=== PATIENT | female | born 1955 | race Caucasian/White ===

== ENCOUNTER → 2020-03-16 | Outpatient (CLI) | payer OTHER, MEDICAID ==
[~2020-03-16] MED LIST: ALPRAZOLAM; AMBIEN 10 MG TA10 MG; BELLADONNA ALK/1 TA1; BONIVA150 MG PO; CARISOPRODOL 3350 MG PO; CREON DR 12,001 EACH PO; CYMBALTA60 MG; DONNATAL EXTEN1 EACH PO; GLYCOLAX POWDER17 G1 PO; HYDROCODON-ACE1 EA10; HYDROXYZINE HCL50 MG PO; HYDROXYZINE PAM50 MG; LEVSIN PO; MIRAPEX0.125 MG PO; NEURONTIN 300300 M1; NEXIUM40 MG PO; NORCO 5-325 TA1 EACH PO; PANCREASE; PERCOCET 5-3251 EACH PO; PLAVIX 75 MG TA75 MG; POTASSIUM CHLO10 ME1 PO; PRENATAL PLUS1 EAC4 PO; PROMETHAZINE HC25 M1 PO; SYNTHROID; TOPAMAX50 MG PO; TOVIAZ8 MG PO; ULTRAM 50MG TAB50 MG PO; XANAX PO; ZPAK PO
== END ==
LOC: M.RAD 13:30
PROVIDERS: ATTEND Family Medicine
DX: M51.35 Other intervertebral disc degeneration, thoracolumbar region (principal); M43.8X4 Other specified deforming dorsopathies, thoracic region; M85.88 Other specified disorders of bone density and structure, other site; M41.86 Other forms of scoliosis, lumbar region; I25.10 Atherosclerotic heart disease of native coronary artery without angina pectoris

== ENCOUNTER → 2020-05-15 | Outpatient (CLI) | payer OTHER | LOC: M.MRI 13:41 | DX: M50.21 Other cervical disc displacement, high cervical region (principal); M50.30 Other cervical disc degeneration, unspecified cervical region; S32.009A Unspecified fracture of unspecified lumbar vertebra, initial encounter for closed fracture; S22.009A Unspecified fracture of unspecified thoracic vertebra, initial encounter for closed fracture; G89.29 Other chronic pain; G95.9 Disease of spinal cord, unspecified; R29.6 Repeated falls; F17.200 Nicotine dependence, unspecified, uncomplicated; X58.XXXA Exposure to other specified factors, initial encounter; Y93.89 Activity, other specified; Y92.89 Other specified places as the place of occurrence of the external cause; Y99.8 Other external cause status ==

== ENCOUNTER → 2020-06-12 | Outpatient (CLI) | payer OTHER | LOC: M.MRI 05-08 14:29 | DX: S32.019A Unspecified fracture of first lumbar vertebra, initial encounter for closed fracture (principal); S22.089A Unspecified fracture of T11-T12 vertebra, initial encounter for closed fracture; M48.061 Spinal stenosis, lumbar region without neurogenic claudication; M51.26 Other intervertebral disc displacement, lumbar region; M89.38 Hypertrophy of bone, other site; X58.XXXA Exposure to other specified factors, initial encounter; Y93.89 Activity, other specified; Y92.89 Other specified places as the place of occurrence of the external cause; Y99.8 Other external cause status ==

== ENCOUNTER → 2021-01-21 | Outpatient (CLI) | payer OTHER ==
[~2021-01-21] MED LIST changes: +BACLOFEN 10MG T10 MG PO; +BELSOMRA10 MG PO; +HYDROCODON-ACE1 EAC5 PO; +SYNTHROID25 MC1 PO
== END ==
LOC: M.PC 01-12 11:10
PROVIDERS: ATTEND Anesthesiology Pain Medicine
DX: M54.5 Low back pain (principal); M81.0 Age-related osteoporosis without current pathological fracture; K85.90 Acute pancreatitis without necrosis or infection, unspecified; D68.62 Lupus anticoagulant syndrome; M79.7 Fibromyalgia; M19.91 Primary osteoarthritis, unspecified site; D58.9 Hereditary hemolytic anemia, unspecified; D51.0 Vitamin B12 deficiency anemia due to intrinsic factor deficiency; Z90.49 Acquired absence of other specified parts of digestive tract; Z88.1 Allergy status to other antibiotic agents; Z88.8 Allergy status to other drugs, medicaments and biological substances; Z79.899 Other long term (current) drug therapy

== ENCOUNTER → 2021-02-18 | Outpatient (CLI) | payer OTHER | LOC: M.PC 12:24 | PROVIDERS: ATTEND Anesthesiology Pain Medicine | DX: M81.0 Age-related osteoporosis without current pathological fracture (principal); K85.90 Acute pancreatitis without necrosis or infection, unspecified; M32.9 Systemic lupus erythematosus, unspecified; M79.7 Fibromyalgia; M19.90 Unspecified osteoarthritis, unspecified site; D58.9 Hereditary hemolytic anemia, unspecified; D51.0 Vitamin B12 deficiency anemia due to intrinsic factor deficiency ==

== ENCOUNTER → 2021-03-18 | Outpatient (CLI) | payer OTHER ==
[~2021-03-18] MED LIST changes: +ADVAIR 250-501 EACH INH; +ADVIL200 M1 PO; +ASPIRIN325 PO; +B-12 INJECTION SUBQ; +COMBIVENT RESPIM4 GM INH; +KLOR-CON 10 ER10 MEQ PO; +LASIX 40 MG TAB40 MG PO; -NEURONTIN 300300 M1; +NEURONTIN 300M300 M2 PO; +NITROSTAT0.4 M1 SUBLING; +PHENERGAN 25 MG25 M1 PO; +PRILOSEC OTC20 MG PO; +PROAIR HFA8.5 GM INH; +VISTARIL 25 MG25 M1 PO
== END ==
LOC: M.PC 12:16
PROVIDERS: ATTEND Anesthesiology Pain Medicine
DX: M54.9 Dorsalgia, unspecified (principal); M81.0 Age-related osteoporosis without current pathological fracture; M19.90 Unspecified osteoarthritis, unspecified site; M79.7 Fibromyalgia; K85.90 Acute pancreatitis without necrosis or infection, unspecified; F17.200 Nicotine dependence, unspecified, uncomplicated

== ENCOUNTER → 2021-04-15 | Outpatient (CLI) | payer OTHER ==
[~2021-04-15] MED LIST changes: +HYSINGLA ER20 MG PO
== END ==
LOC: M.PC 12:21
PROVIDERS: ATTEND Anesthesiology Pain Medicine
DX: M54.59 Other low back pain (principal); M81.0 Age-related osteoporosis without current pathological fracture; K85.90 Acute pancreatitis without necrosis or infection, unspecified; M79.7 Fibromyalgia; M19.90 Unspecified osteoarthritis, unspecified site; D58.9 Hereditary hemolytic anemia, unspecified; D51.0 Vitamin B12 deficiency anemia due to intrinsic factor deficiency; Z90.49 Acquired absence of other specified parts of digestive tract; Z88.8 Allergy status to other drugs, medicaments and biological substances; Z79.82 Long term (current) use of aspirin; Z79.899 Other long term (current) drug therapy

== ENCOUNTER → 2021-05-13 | Outpatient (CLI) | payer OTHER ==
[~2021-05-13] MED LIST changes: +ROXICODONE5 MG PO; +XTAMPZA ER13.5 MG PO
== END ==
LOC: M.PC 12:00
PROVIDERS: ATTEND Anesthesiology Pain Medicine
DX: M81.0 Age-related osteoporosis without current pathological fracture (principal); K85.90 Acute pancreatitis without necrosis or infection, unspecified; M32.10 Systemic lupus erythematosus, organ or system involvement unspecified; M79.7 Fibromyalgia; D58.9 Hereditary hemolytic anemia, unspecified; D51.0 Vitamin B12 deficiency anemia due to intrinsic factor deficiency

== ENCOUNTER → 2021-06-10 | Outpatient (CLI) | payer OTHER ==
[~2021-06-10] MED LIST changes: +XTAMPZA ER18 MG PO
== END ==
LOC: M.PC 11:20
PROVIDERS: ATTEND Anesthesiology Pain Medicine
DX: M54.50 Low back pain, unspecified (principal); M81.0 Age-related osteoporosis without current pathological fracture; K85.90 Acute pancreatitis without necrosis or infection, unspecified; M79.7 Fibromyalgia; M19.91 Primary osteoarthritis, unspecified site; D58.9 Hereditary hemolytic anemia, unspecified; D51.0 Vitamin B12 deficiency anemia due to intrinsic factor deficiency; Z90.49 Acquired absence of other specified parts of digestive tract; Z88.8 Allergy status to other drugs, medicaments and biological substances; Z79.899 Other long term (current) drug therapy

== ENCOUNTER → 2021-07-08 | Outpatient (CLI) | payer OTHER | LOC: M.PC 08:44 | PROVIDERS: ATTEND Anesthesiology Pain Medicine | DX: M54.50 Low back pain, unspecified (principal); M85.80 Other specified disorders of bone density and structure, unspecified site; K85.90 Acute pancreatitis without necrosis or infection, unspecified; M79.7 Fibromyalgia; D58.9 Hereditary hemolytic anemia, unspecified; D51.0 Vitamin B12 deficiency anemia due to intrinsic factor deficiency; Z90.49 Acquired absence of other specified parts of digestive tract; Z88.8 Allergy status to other drugs, medicaments and biological substances; Z79.899 Other long term (current) drug therapy ==

== ENCOUNTER 2021-07-27 00:47 | Inpatient (IN) | payer OTHER ==
[2021-07-27] VITALS (11 sets, daily range): BP systolic 87–108; BP diastolic 48–66
[~2021-07-27] VITALS: Ht 157.5 cm; Wt 51.3 kg
--- NOTE | ~2021-07-27 | PROC ---
[facility] [address] [place] [address] PROCEDURE REPORT Name: DIMITRI WADE Room: [address] IN M.R.#: [id number] Admission: 07/27/21 Attend Phys: Lynnette Pineda Discharge: 08/03/21 Date of : 53 Report #: [id number] THIS REPORT FOR: cc: Denys Knight Russell J. DO [facility],Medical Records Staff ~ For Gi report, please see the Provation report in Perceptive 7 content. By: 0839Medical Records Staff TERESA /ERIN
--- NOTE | ~2021-07-27 | EMS ---
[address] [address] EMS Patient Care Report Name: DIMITRI WADE Room: [place] [address] ADM IN [facility]#: [id number] Admission: 07/27/21 Attend Phys: Lynnette Pineda Discharge: Date of : 53 Report #: [id number] THIS REPORT FOR: //name// Report Transmitted: 07/27/2021 06:56 EMS Care Summary [facility] Incident [id number] @ 07/27/2021 00:04 Incident Location [address] [place] [address] Patient DIMITRI WADE Female, 65 Years 1955 Patient Address [address] [place] [address] Patient History Lupus,Pancreatitis, Patient Allergies No known allergies, Chief Complaint altered mental status Disposition Transported No Lights/[place] Reason Unconscious/Fainting Transported To [facility] Narrative Upon arrival at scene, pt presented as a 65 y/o woman unconscious and breathing sitting on a bedside commode in a bedroom of a private residence with a chief complaint of altered mental status. A man on scene who identified himself as the pt's stated that pt "has been sick for a few days" and became unconscious while sitting on the bedside commod Pt's reported that pt had no complaints prior to her syncopal episode but reported that pt [address] [place] [address] EMS Patient Care Report Name: DIMITRI WADE Room: [place] [address] ADM IN ..#: [id number] Admission: 07/27/21 Attend Phys: Lynnette Pineda Discharge: Date of : 53 Report #: [id number] experienced a decreased appetite for approximately 96 hrs prior to EMS arrival, stating "she only ate half a quarter-pounder yesterday." Pt was responsive only to painful stimuli with a GCS of 9 upon EMS arrival and exhibited bilateral contusions to upper extremities. Serial 12-lead ECGs exhibited no ST elevation and no opioid/anticoagulant medications were observed on scene. Pt exhibited no other obvious signs of trauma or deformity upon examination and pt remained non-verbal, responsive to verbal/painful stimuli, GCS 9-10, and a seemingly unreliable historian to recent events and personal medical history throughout EMS care. Pt was treated per protocol and transfer of patient care was completed upon arrival at destination medical facility. Initial Vitals @00:21 @00:25R: 16,EtCO2: 22, @00:19P: 82,R: 16,EtCO2: 19,SpO2: 100, @00:20P: 76,R: 15,EtCO2: 23,SpO2: 96, @00:31R: 17,EtCO2: 21, @00:44R: 19,EtCO2: 19, @00:41P: 155,R: 18,EtCO2: 21, @00:41P: 159,R: 18,BP: 99/74,Pain: 0/10,GCS: 9,EtCO2: 21,SpO2: 100,Revised Trauma: 11,WI Suspected: false @00:28GCS: 9, @00:17P: 130,R: 16,BP: 76/52,Pain: 0/10,GCS: 9,Glucose: 96,EtCO2: 21,SpO2: 97,Revised Trauma: 10,WI Suspected: false @00:26R: 16,BP: 96/75,GCS: 9,EtCO2: 22,Revised Trauma: 11, @00:37P: 160,R: 17,BP: 164/141,Pain: 0/10,GCS: 10,EtCO2: 21,Revised Trauma: 11,WI Suspected: false Impression Altered Mental Status Procedures @00:20 IV Therapy - 0cc (20 ga) Site: Forearm-Left Response: UnchangedFailed @00:25 IV Therapy - 0cc (20 ga) Site: Antecubital-Right Response: UnchangedFailed @00:09 ALS Assessment Response: UnchangedSucceeded @00:21 12-Lead ECG @00:20 Oxygen FlowRate: 2 Device: Nasal Cannula (NC) Response: UnchangedSucceeded @00:30 Sepsis Notification Response: Unchanged Timeline 00:03,Call Received 00:04,[place] [address] EMS Patient Care Report Name: DIMITRI WADE Room: [place] [address] ADM IN [facility]#: [id number] Admission: 07/27/21 Attend Phys: Lynnette Pineda Discharge: Date of : 53 Report #: [id number] 00:06,En Route 00:09,On Scene 00:09,At Patient 00:09,ALS Assessment,Response: UnchangedSucceeded, 00:17,BP: 76/52 M,PULSE: 130,RR: 16 R,SPO2: 97 Ox,ETCO2: 21 ,B,PAIN: 0,GCS: 9, 00:19,BP: / M,PULSE: 82,RR: 16 R,SPO2: 100 Ox,ETCO2: 19 ,BG: ,PAIN: ,GCS: , 00:20,IV Therapy - 0cc 20 ga Site: Forearm-Left,Response: UnchangedFailed, 00:20,Oxygen FlowRate: 2 Device: Nasal Cannula (NC) Response: UnchangedSucceeded, 00:20,BP: / M,PULSE: 76,RR: 15 R,SPO2: 96 Ox,ETCO2: 23 ,BG: ,PAIN: ,GCS: , 00:21,12-Lead ECG, 00:21,BP: / M,PULSE: ,RR: R,SPO2: Ox,ETCO2: ,BG: ,PAIN: ,GCS: , 00:24,Depart Scene 00:25,IV Therapy - 0cc 20 ga Site: Antecubital-Right,Response: UnchangedFailed, 00:25,BP: / M,PULSE: ,RR: 16 R,SPO2: Ox,ETCO2: 22 ,BG: ,PAIN: ,GCS: , 00:26,BP: 96/75 M,PULSE: ,RR: 16 R,SPO2: Ox,ETCO2: 22 ,BG: ,PAIN: ,GCS: 9, 00:28,BP: / M,PULSE: ,RR: R,SPO2: Ox,ETCO2: ,BG: ,PAIN: ,GCS: 9, 00:30,Sepsis Notification,Response: Unchanged 00:31,BP: / M,PULSE: ,RR: 17 R,SPO2: Ox,ETCO2: 21 ,BG: ,PAIN: ,GCS: , 00:37,BP: 164/141 M,PULSE: 160,RR: 17 R,SPO2: Ox,ETCO2: 21 ,BG: ,PAIN: 0,GCS: 10, 00:41,BP: / M,PULSE: 155,RR: 18 R,SPO2: Ox,ETCO2: 21 ,BG: ,PAIN: ,GCS: , 00:41,BP: 99/74 M,PULSE: 159,RR: 18 R,SPO2: 100 Ox,ETCO2: 21 ,BG: ,PAIN: 0,GCS: 9, 00:44,At Destination 00:44,BP: / M,PULSE: ,RR: 19 R,SPO2: Ox,ETCO2: 19 ,BG: ,PAIN: ,GCS: , 01:01,Call Closed 01:15,In District Disclaimer v1.1 Copyright 2021 [employer] This EMS Care Summary contains data elements from the applicable legal record (which may be displayed differently). It is designed to provide pertinent information for the following purposes: continuity of care, clinical quality, and state data reporting. The complete legal record is available to ED staff and administrators of the receiving hospital in [employer]'s Patient Tracker. All data is provided "as is."
--- NOTE | ~2021-07-27 | EMS ---
[facility] [address] [place] [address] EMS Patient Care Report Name: DIMITRI WADE Room: [facility]..#: [id number] Admission: Attend Phys: Discharge: Date of : 53 Report #: [id number] THIS REPORT FOR: //name// Report Transmitted: 07/27/2021 01:32 EMS Care Summary [place] [facility] Incident [id number] @ 07/27/2021 00:04 Incident Location [address] [place] [address] Patient DIMITRI WADE Female, 65 Years 1955 Patient Address [address] [place] [address] Patient History Lupus,Pancreatitis, Patient Allergies No known allergies, Chief Complaint altered mental status Disposition Transported No Lights/[place] Reason Unconscious/Fainting Transported To [facility] Narrative Upon arrival at scene, pt presented as a 65 y/o woman unconscious and breathing sitting on a bedside commode in a bedroom of a private residence with a chief complaint of altered mental status. A man on scene who identified himself as the pt's stated that pt "has been sick for a few days" and became unconscious while sitting on the bedside commod Pt's reported that pt had no complaints prior to her syncopal episode but reported that pt [address] [place] [address] EMS Patient Care Report Name: DIMITRI WADE Room: [facility]..#: [id number] Admission: Attend Phys: Discharge: Date of : 53 Report #: [id number] experienced a decreased appetite for approximately 96 hrs prior to EMS arrival, stating "she only ate half a quarter-pounder yesterday." Pt was responsive only to painful stimuli with a GCS of 9 upon EMS arrival and exhibited bilateral contusions to upper extremities. Serial 12-lead ECGs exhibited no ST elevation and no opioid/anticoagulant medications were observed on scene. Pt exhibited no other obvious signs of trauma or deformity upon examination and pt remained non-verbal, responsive to verbal/painful stimuli, GCS 9-10, and a seemingly unreliable historian to recent events and personal medical history throughout EMS care. Pt was treated per protocol and transfer of patient care was completed upon arrival at destination medical facility. Initial Vitals @00:21 @00:25R: 16,EtCO2: 22, @00:19P: 82,R: 16,EtCO2: 19,SpO2: 100, @00:20P: 76,R: 15,EtCO2: 23,SpO2: 96, @00:31R: 17,EtCO2: 21, @00:44R: 19,EtCO2: 19, @00:41P: 155,R: 18,EtCO2: 21, @00:41P: 159,R: 18,BP: 99/74,Pain: 0/10,GCS: 9,EtCO2: 21,SpO2: 100,Revised Trauma: 11,MD Suspected: false @00:28GCS: 9, @00:17P: 130,R: 16,BP: 76/52,Pain: 0/10,GCS: 9,Glucose: 96,EtCO2: 21,SpO2: 97,Revised Trauma: 10,MD Suspected: false @00:26R: 16,BP: 96/75,GCS: 9,EtCO2: 22,Revised Trauma: 11, @00:37P: 160,R: 17,BP: 164/141,Pain: 0/10,GCS: 10,EtCO2: 21,Revised Trauma: 11,MD Suspected: false Impression Altered Mental Status Procedures @00:20 IV Therapy - 0cc (20 ga) Site: Forearm-Left Response: UnchangedFailed @00:25 IV Therapy - 0cc (20 ga) Site: Antecubital-Right Response: UnchangedFailed @00:09 ALS Assessment Response: UnchangedSucceeded @00:21 12-Lead ECG @00:20 Oxygen FlowRate: 2 Device: Nasal Cannula (NC) Response: UnchangedSucceeded @00:30 Sepsis Notification Response: Unchanged Timeline 00:03,Call Received 00:04,[place] [address] EMS Patient Care Report Name: DIMITRI WADE Room: [facility].R.#: [id number] Admission: Attend Phys: Discharge: Date of : 53 Report #: [id number] 00:06,En Route 00:09,On Scene 00:09,At Patient 00:09,ALS Assessment,Response: UnchangedSucceeded, 00:17,BP: 76/52 M,PULSE: 130,RR: 16 R,SPO2: 97 Ox,ETCO2: 21 ,B,PAIN: 0,GCS: 9, 00:19,BP: / M,PULSE: 82,RR: 16 R,SPO2: 100 Ox,ETCO2: 19 ,BG: ,PAIN: ,GCS: , 00:20,IV Therapy - 0cc 20 ga Site: Forearm-Left,Response: UnchangedFailed, 00:20,Oxygen FlowRate: 2 Device: Nasal Cannula (NC) Response: UnchangedSucceeded, 00:20,BP: / M,PULSE: 76,RR: 15 R,SPO2: 96 Ox,ETCO2: 23 ,BG: ,PAIN: ,GCS: , 00:21,12-Lead ECG, 00:21,BP: / M,PULSE: ,RR: R,SPO2: Ox,ETCO2: ,BG: ,PAIN: ,GCS: , 00:24,Depart Scene 00:25,IV Therapy - 0cc 20 ga Site: Antecubital-Right,Response: UnchangedFailed, 00:25,BP: / M,PULSE: ,RR: 16 R,SPO2: Ox,ETCO2: 22 ,BG: ,PAIN: ,GCS: , 00:26,BP: 96/75 M,PULSE: ,RR: 16 R,SPO2: Ox,ETCO2: 22 ,BG: ,PAIN: ,GCS: 9, 00:28,BP: / M,PULSE: ,RR: R,SPO2: Ox,ETCO2: ,BG: ,PAIN: ,GCS: 9, 00:30,Sepsis Notification,Response: Unchanged 00:31,BP: / M,PULSE: ,RR: 17 R,SPO2: Ox,ETCO2: 21 ,BG: ,PAIN: ,GCS: , 00:37,BP: 164/141 M,PULSE: 160,RR: 17 R,SPO2: Ox,ETCO2: 21 ,BG: ,PAIN: 0,GCS: 10, 00:41,BP: / M,PULSE: 155,RR: 18 R,SPO2: Ox,ETCO2: 21 ,BG: ,PAIN: ,GCS: , 00:41,BP: 99/74 M,PULSE: 159,RR: 18 R,SPO2: 100 Ox,ETCO2: 21 ,BG: ,PAIN: 0,GCS: 9, 00:44,At Destination 00:44,BP: / M,PULSE: ,RR: 19 R,SPO2: Ox,ETCO2: 19 ,BG: ,PAIN: ,GCS: , 01:01,Call Closed 01:15,In District Disclaimer v1.1 Copyright 2021 [employer] This EMS Care Summary contains data elements from the applicable legal record (which may be displayed differently). It is designed to provide pertinent information for the following purposes: continuity of care, clinical quality, and state data reporting. The complete legal record is available to ED staff and administrators of the receiving hospital in [employer]'s Patient Tracker. All data is provided "as is."
[2021-07-27 03:05] LABS: ABSOLUTE LYMPHOCYTES 1.4 thou/uL (0.8-5.3); ABSOLUTE MONOCYTES 0.3 thou/uL (0.0-1.2); ABSOLUTE NEUTROPHILS 9.4 thou/uL (1.6-8.1); BASOPHILS 0.4 %; EOSINOPHILS 0.4 %; HEMATOCRIT 34.7 % (37.0-47.0); HEMOGLOBIN 11.7 gm/dL (12.0-15.0); LYMPHOCYTES 12.5 %; MCH 32.2 pg (26.0-34.0); MCHC 33.7 g/dL (28.0-37.0); MCV 95.6 fL (80.0-100.0); MONOCYTES 2.5 %; MPV 9.4 fl. (7.2-11.1); NUCLEATED RBCS 0 /100WBC; PLATELET COUNT* 241 thou/uL (150-400); POLYS 84.2 %; RBC 3.63 mil/uL (4.20-5.00); RDW-CV 14.9 % (10.5-14.5); WBC 11.1 thou/uL (4.0-11.0)
[2021-07-27 03:29] LABS: CALCIUM 6.5 mg/dL (8.5-10.1); CREATININE 0.7 mg/dL (0.6-1.3)
[2021-07-27 03:40] LABS: ALBUMIN 1.7 g/dL (3.4-5.0); TOTAL BILIRUBIN 3.1 mg/dL (<0.1-1.0); TOTAL PROTEIN 4.2 g/dL (6.4-8.2)
[2021-07-27 03:41] LABS: PCO2 32.2 mmHg (35.0-45.0); pH 7.515 (7.340-7.450)
[2021-07-27 03:43] LABS: PO2 433.2 mmHg (75.0-100.0)
[2021-07-27 03:57] LABS: ACETAMINOPHEN 5 ug/mL (10-30); SALICYLATE < 2.8 mg/dL (2.8-20.0)
[2021-07-27 04:02] LABS: AMP/METHAMP Negative (Negative); BARBITURATES POSITIVE (Negative); BENZODIAZEPINES POSITIVE (Negative); COCAINE Negative (Negative); METHADONE Negative (Negative); OPIATES Negative (Negative); PCP Negative (Negative); THC Negative (Negative); URINE BLOOD TRACE (Negative); URINE CLARITY CLEAR; URINE COLOR YELLOW; URINE GLUCOSE-RANDOM TRACE (Negative); URINE KETONES NEGATIVE (Negative); URINE LEUKOCYTES NEGATIVE (Negative); URINE NITRITE NEGATIVE (Negative); URINE PROTEIN TRACE (Negative); URINE UROBILINOGEN >= 8.0 E.U./dl (0.2-1.0)
[2021-07-27 04:08] LABS: URINE BILIRUBIN 2+ (Negative)
[2021-07-27 04:10] LABS: ICTOTEST (BILI CONFIRMATORY) Positive (Negative)
[2021-07-27 11:05] LABS: HEMATOCRIT 37.3 % (37.0-47.0); HEMOGLOBIN 12.6 gm/dL (12.0-15.0); MCH 32.3 pg (26.0-34.0); MCHC 33.7 g/dL (28.0-37.0); MCV 95.9 fL (80.0-100.0); MPV 9.5 fl. (7.2-11.1); NUCLEATED RBCS 0 /100WBC; PLATELET COUNT* 277 thou/uL (150-400); RBC 3.89 mil/uL (4.20-5.00); RDW-CV 14.7 % (10.5-14.5); WBC 18.3 thou/uL (4.0-11.0)
[2021-07-27 12:09] LABS: ABSOLUTE LYMPHOCYTES 1.3 thou/uL (0.8-5.3); ABSOLUTE MONOCYTES 1.1 thou/uL (0.0-1.2); ABSOLUTE NEUTROPHILS 15.9 thou/uL (1.6-8.1); PLATELET ESTIMATE ADEQUATE
[2021-07-27 12:26] LABS: MAGNESIUM 2.7 mg/dL (1.8-2.4)
[2021-07-27 12:28] LABS: POTASSIUM 1.2 mmol/L (3.5-5.1)
[2021-07-27 12:44] LABS: CALCIUM 6.1 mg/dL (8.5-10.1); CREATININE 0.9 mg/dL (0.6-1.3)
[2021-07-27 12:45] LABS: POTASSIUM 1.3 mmol/L (3.5-5.1)
[2021-07-27 12:49] LABS: ALBUMIN 1.6 g/dL (3.4-5.0); TOTAL BILIRUBIN 2.9 mg/dL (<0.1-1.0); TOTAL PROTEIN 4.1 g/dL (6.4-8.2)
--- NOTE | 2021-07-27 13:24 | 2DMMODE ---
[place] [address] 2 D/M-MODE ECHOCARDIOGRAM Name: DIMITRI WADE MANFRED Room: [address] IN [facility]#: [id number] Admission: 07/27/21 Attend Phys: Shan Chacon Discharge: Date of : 53 Date of Service: 07/27/21 1323 Report #: [id number] THIS REPORT FOR: cc: Denys Knight Russell J. DO Biggs, F. Douglas MD [facility] ~ APPROVED REPORT Study performed: 07/27/2021 10:38:26 EXAM: Comprehensive 2D, Doppler, and color-flow Echocardiogram Patient Location: In-Patient Room #: 002 Status: routine BSA: 1.50 HR: 91 bpm BP: 108/64 mmHg Rhythm: NSR Other Information Study Quality: Good Indications Arrhythmia svt 2D Dimensions IVSd: 8.49 (7-11mm) LVOT Diam: 20.11 (18-24mm) LVDd: 34.93 mm PWd: 8.60 (7-11mm) Ascending Ao: 29.19 (22-36mm) LVDs: 21.05 (25-40mm) Aortic Root: 29.35 mm Volumes Left Atrial Volume (Systole) LA ESV Index: 19.80 mL/m2 Aortic Valve AoV Peak Chavo.: 0.99 m/s AO Peak Gr.: 3.92 mmHg LVOT Max P.50 mmHg AO Mean Gr.: 2.19 mmHg LVOT Mean P.68 mmHg LVOT Max V: 0.94 m/s AO V2 VTI: 14.26 cm LVOT Mean V: 0.60 m/s EDITH (VTI): 2.99 cm2 LVOT V1 VTI: 13.43 [place] [address] 2 D/M-MODE ECHOCARDIOGRAM Name: DIMITRI WADE Room: [address] IN ..#: [id number] Admission: 07/27/21 Attend Phys: Shan Chacon Discharge: Date of : 53 Date of Service: 07/27/21 1323 Report #: [id number] Mitral Valve E/A Ratio: 0.79 MV Decel. Time: 302.50 ms MV E Max Chavo.: 0.43 m/s MV PHT: 87.73 ms MVA (PHT): 2.51 cm2 TDI E/Lateral E': 4.30 E/Medial E': 7.17 Medial E' Chavo.: 0.06 m/s Lateral E' Chavo.: 0.10 m/s Pulmonary Valve PV Peak Chavo.: 0.64 m/s PV Peak Gr.: 1.62 mmHg Tricuspid Valve RAP Estimate: 5.00 mmHg TR Peak Gr.: 17.27 mmHg RVSP: 22.00 mmHg PA Pressure: 22.00 mmHg Left Ventricle The left ventricle is normal size. There is normal LV segmental wall motion. There is normal left ventricular wall thickness. Left ventricular systolic function is normal. The left ventricular ejection fraction is within the normal range. LVEF is 50-55%. Grade I - abnormal relaxation pattern. Right Ventricle The right ventricle is normal size. The right ventricular systolic function is normal. Atria The left atrium size is normal. The right atrium size is normal. Aortic Valve The aortic valve is normal in structure. No aortic regurgitation is present. There is no aortic valvular stenosis. Mitral Valve The mitral valve is normal in structure. There is no mitral valve regurgitation noted. No evidence of mitral valve stenosis. Tricuspid Valve The tricuspid valve is normal in [place] [address] 2 D/M-MODE ECHOCARDIOGRAM Name: DIMITRI WADE MANFRED Room: [address]#: [id number] Admission: 07/27/21 Attend Phys: Shan Chacon Discharge: Date of : 53 Date of Service: 07/27/21 1323 Report #: [id number] regurgitation. No pulmonary hypertension. Pulmonic Valve The pulmonary valve is normal in structure. There is no pulmonic valvular regurgitation. Great Vessels The aortic root is normal in size. IVC is normal in size and collapses >50% with inspiration. Pericardium There is no pericardial effusion. <Conclusion> LVEF is 50-55%. Grade I - abnormal relaxation pattern. There is normal left ventricular wall thickness. The left ventricle is normal size. There is normal LV segmental wall motion. The aortic valve is normal in structure. The mitral valve is normal in structure. Mild tricuspid regurgitation. No pulmonary hypertension. IVC is normal in size and collapses >50% with inspiration. <ELECTRONICALLY SIGNED> By: Cecy Hein MD, FACC 07/27/21 132 132 132 Cecy Hein MD, FACC /INF
--- NOTE | 2021-07-27 16:31 | EKG ---
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1955 Requested By: Shanell Christie Order Number: [id number] MD: Niranjan Servin Measurements Intervals [place] Rate: 169 P: 242 CO: 122 QRS: 45 QRSD: 87 T: QT: 270 QTc: 453 Interpretive Statements Sinus tachycardia Low voltage, extremity leads Repolarization abnormality, prob rate related Compared to ECG 12/12/2008 14:58:24 Low QRS voltage now present Sinus rhythm no longer present Electronically Signed On 07-27-2021 16:30:47 PIZZA DRIVER by Niranjan Servin [email or web address] <ELECTRONICALLY SIGNED> By: Niranjan Servin MD, [facility] 07/27/21 1630 0055 0055 Niranjan Servin MD, [facility] /EPI
--- NOTE | 2021-07-27 16:31 | EKG ---
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1955 Requested By: Shanell Christie Order Number: [id number] MD: Niranjan Servin Measurements Intervals [place] Rate: 175 P: 0 RI: QRS: 69 QRSD: 91 T: 259 QT: 300 QTc: 512 Interpretive Statements Supraventricular tachycardia Low voltage, extremity leads Repolarization abnormality, prob rate related Compared to ECG 07/27/2021 00:55:23 No significant changes Electronically Signed On 07-27-2021 16:31:18 STORAGE FACILITY RENTAL CLERK by Niranjan Servin [email or web address] <ELECTRONICALLY SIGNED> By: Niranjan Servin MD, [facility] 07/27/21 1631 0119 0119 Niranjan Servin MD, [facility] /EPI
--- NOTE | 2021-07-27 16:33 | EKG ---
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1955 Requested By: Shanell Christie Order Number: [id number] MD: Nirajnan Servin Measurements Intervals [place] Rate: 179 P: 248 MN: 62 QRS: 59 QRSD: 149 T: 260 QT: 299 QTc: 517 Interpretive Statements supraventricular tachycardia artifact noted Compared to ECG 07/27/2021 01:19:49 no change Electronically Signed On 07-27-2021 16:32:53 PRINT LINE TAILER by Niranjan Servin [email or web address] <ELECTRONICALLY SIGNED> By: Niranjan Servin MD, [facility] 07/27/21 1632 0121 0121 Niranjan Servin MD, [facility] /EPI
[2021-07-27 23:29] LABS: CALCIUM 6.6 mg/dL (8.5-10.1); CREATININE 0.9 mg/dL (0.6-1.3)
[2021-07-27 23:34] LABS: POTASSIUM 1.7 mmol/L (3.5-5.1)
[2021-07-28] VITALS (62 sets, daily range): BP systolic 73–114; BP diastolic 42–89
[2021-07-28 06:39] LABS: HEMATOCRIT 28.3 % (37.0-47.0); MCH 32.7 pg (26.0-34.0); MCHC 33.8 g/dL (28.0-37.0); MCV 96.8 fL (80.0-100.0); MPV 9.3 fl. (7.2-11.1); RBC 2.93 mil/uL (4.20-5.00); RDW-CV 15.4 % (10.5-14.5); WBC 13.7 thou/uL (4.0-11.0)
[2021-07-28 07:02] LABS: HEMOGLOBIN 9.6 gm/dL (12.0-15.0)
[2021-07-28 07:19] LABS: ALBUMIN 3.2 g/dL (3.4-5.0); CALCIUM 6.7 mg/dL (8.5-10.1); MAGNESIUM 4.1 mg/dL (1.8-2.4); TOTAL BILIRUBIN 3.4 mg/dL (<0.1-1.0)
--- NOTE | 2021-07-28 07:46 | CON ---
[address] [address] CONSULTATION Name: DIMITRI WADE Room: [address] ADM IN M.R.#: [id number] Admission: 07/27/21 Attend Phys: Lynnette Pineda Discharge: Date of : 53 Report #: [id number] THIS REPORT FOR: cc: Denys Knight Russell J. DO Biggs, F. Douglas MD [facility] ~ DATE OF CONSULTATION: 07/27/2021 CARDIOLOGY CONSULTATION HISTORY OF PRESENT ILLNESS: Cardiology consultation assessed by Dr. Chacon to see this 65-year-old white female in Cardiology consultation for evaluation and treatment of possible SVT or PSVT. This lady came to the Emergency Room last night with unresponsiveness. She has been unresponsive for at least 3 hours before being brought in. She has been sick since ' with gradual worsening. She was found to be unresponsive to have acute respiratory failure and she was quite tachycardic. Her EKG shows what appears to be a narrow complex tachycardia at a rate of 164. She was given adenosine, which did break her, but it caused bradycardia and some long pauses. She was therefore apparently given according to the ICU nurse atropine in the ER and she became tachycardic again. It is not quite clear whether this is sinus tachycardia or PSVT. This lady does have a history of multiple problems. The history is from the chart as she is intubated and unresponsive. She had multiple metabolic problems in the ER including a potassium of 1. She was hypercalcemic markedly so also as well as hypomagnesemic. She had an elevated lactic acid. She has been having quite a bit of diarrhea. She said to have some sort of chronic colitis. Most of the history is obtained from the chart. PAST MEDICAL AND SURGICAL HISTORY: She does have a past history of osteoporosis, pancreatitis, lupus, CVA x 2, fibromyalgia, lupus, blood clotting disease, arthritis, hemolytic anemia, pernicious anemia and chronic insomnia. She has had an appendectomy, hernia repair, pins in the left leg, cholecystectomy, panniculectomy and pancreas surgery. HOME MEDICATIONS: Include: 1. Cymbalta 60 mg daily. 2. Neurontin 300 mg b.i.d. 3. Synthroid 25 mcg daily. 4. Baclofen 10 mg b.i.d. 4. Vistaril 25 mg at bedtime. 5. Combivent 1 puff q.i.d. 6. Albuterol 2 puffs every 4 hours p.r.n. 7. Advair 1 puff b.i.d. She appears to have COPD. 8. P.r.n. nitroglycerin. 9. Lasix 40 [place] [address] CONSULTATION Name: DIMITRI WADE MANFRED Room: [address] IN [facility]#: [id number] Admission: 07/27/21 Attend Phys: Lynnette Pineda Discharge: Date of : 53 Report #: [id number] 10. Phenergan 12.5 mg b.i.d. 11. Omeprazole 20 mg daily. 12. Potassium 10 mEq daily p.r.n. 13. Lasix. 14. B12 injections. 15. Aspirin 325 mg daily. 16. Ibuprofen t.i.d. ALLERGIES: SHE IS ALLERGIC TO AZITHROMYCIN, CONTRAST DYE, LATEX, POVIDONE IODINE, STADOL, REGLAN AND COMPAZINE. SOCIAL HISTORY: She does not smoke, drink or use illegal drugs according to the chart. REVIEW OF SYSTEMS: Unobtainable. FAMILY HISTORY: Unobtainable. PHYSICAL EXAMINATION: GENERAL: She presents as an elderly, very thin, white female, in no acute distress. She is intubated and unresponsive. VITAL SIGNS: Her pulse was 77 and regular. She appeared to be in normal sinus rhythm on the monitor. Blood pressure was 108/64, on Levophed. She has been tapered off of it; however, an hour blood pressure is running in the 90 systolic. Her O2 sats are 97%, respirations are 20 on the ventilator, temperature is 36.3. HEENT: Head was atraumatic. Eyes are clear. NECK: Supple. There is no jugular venous distention or hepatojugular reflux. Thyroid is not enlarged. There is no adenopathy. SKIN: Warm and dry. Mucous membranes are moist. LUNGS: Clear to auscultation and percussion. HEART: Revealed normal first and second heart sound. There is soft S4. There is no S3. There are no murmurs, rubs, thrills, or heaves. There was no other gallops. PMI is nondisplaced. ABDOMEN: Soft, flat, nontender. No palpable masses, no organomegaly. EXTREMITIES: Revealed no cyanosis, clubbing or edema. NEUROLOGIC: The patient did not mentate normally. She was unresponsive. LABORATORY DATA: EKG is as described above. Chest x-ray was unremarkable. IMPRESSION: 1. Possible supraventricular tachycardia versus sinus tachycardia. I favor sinus tachycardia. 2. Unresponsiveness. [place] [address] [place] [address] CONSULTATION Name: DIMITRI WADE Room: [address]#: [id number] Admission: 07/27/21 Attend Phys: Lynnette Pineda Discharge: Date of : 53 Report #: [id number] 3. Acute respiratory failure. 4. Hypocalcemia. 5. Profound hypokalemia. 6. Hypomagnesemia. 7. Elevated lactate. 8. Diarrhea. RECOMMENDATIONS: I would replace all of her electrolytes and give her fluid. If she has more SVT and it is clear cut SVT, then I would treat it. Unfortunately, at this point given her blood pressure systolic in the 90s, I do not want to give her a beta sheila or calcium channel sheila to prevent SVT and I do want to give her an antiarrhythmic given the electrolyte disturbances. I cannot give her digoxin because of the hypokalemia. We will observe her at this point as she is in sinus rhythm and treat her if she needs it. I think fluid replacement and electrolyte replacement are the cramer at this point. Thank you very much for asking me to see patient. If there are any questions, please feel free to contact me. <ELECTRONICALLY SIGNED> By: Cecy Hein MD, [facility] 07/28/21 0746 1146 1716FJerad Hein MD, FACC /nt
[2021-07-28 08:10] LABS: HEPATITIS B SURFACE AG Negative (Negative)
[2021-07-28 12:12] LABS: BE -5.4 mmol/L (-2 to +3); PCO2 20.6 mmHg (35.0-45.0); PO2 121.8 mmHg (75.0-100.0); pH 7.509 (7.340-7.450)
[2021-07-28 12:20] LABS: HEMOGLOBIN 9.6 gm/dL (12.0-15.0); MCH 32.6 pg (26.0-34.0); MCHC 33.2 g/dL (28.0-37.0); MCV 98.2 fL (80.0-100.0); MPV 9.6 fl. (7.2-11.1); RBC 2.95 mil/uL (4.20-5.00); RDW-CV 16.2 % (10.5-14.5)
[2021-07-28 12:38] LABS: TOTAL BILIRUBIN 3.2 mg/dL (<0.1-1.0); TOTAL PROTEIN 4.8 g/dL (6.4-8.2)
[2021-07-28 12:52] LABS: CALCIUM 6.5 mg/dL (8.5-10.1); CREATININE 1.1 mg/dL (0.6-1.3)
--- NOTE | 2021-07-28 16:05 | CON ---
[facility] [address] [place] [address] CONSULTATION Name: DIMITRI WADE Room: [address] IN M.R.#: [id number] Admission: 07/27/21 Attend Phys: Lynnette Pineda Discharge: Date of : 53 Report #: [id number] THIS REPORT FOR: cc: Denys Knight Russell J. DO Namin, Farid M. MD ~ DATE OF CONSULTATION: 07/27/2021 REQUESTING PHYSICIAN: Dr. Shan Chacon. REASON FOR CONSULTATION: Abnormal liver enzymes. history of pancreatitis. HISTORY OF PRESENT ILLNESS: This is a 65-year-old female with history of pancreatitis who apparently has not been eating for the past couple of months. She also has had minimal fluid intake per . The patient's reports that she was not responsive, therefore he decided to bring her to the hospital. Upon arrival, the patient was found to have mental status changes, respiratory failure, and sepsis. Her liver enzymes found to be elevated as well. The patient currently is intubated. She has a potassium of 1.3 that is after replacement. PAST MEDICAL HISTORY: Significant for history of fibromyalgia, osteoporosis, pancreatitis, lupus, arthritis, pernicious anemia, insomnia, hemolytic anemia, history of appendectomy, hernia repair, gallbladder disease, status post cholecystectomy. ALLERGIES: Please refer to MAR. MEDICATIONS: Please refer to MAR. SOCIAL HISTORY: The patient apparently has multiple medical problems and has lost significant amount of weight over a period of couple of years. She lives at home with her and has not been able to eat or drink much for the past couple of months. FAMILY HISTORY: Noncontributory. PHYSICAL EXAMINATION: GENERAL: The patient currently is intubated and sedated. ABDOMEN: Soft. NEUROLOGIC: The patient is sedated. CARDIOVASCULAR: The patient is hypotensive, but has regular rate. LABORATORY DATA: Labs revealed WBC of 18.3, hemoglobin 12.6, platelet [place] [address] [address] CONSULTATION Name: WADEDIMITRI Room: [address] IN [facility].#: [id number] Admission: 07/27/21 Attend Phys: Lynnette Pineda Discharge: Date of : 53 Report #: [id number] Sodium 149, potassium 1.3, chloride 111, BUN is 4, creatinine is 0.9, glucose is 221. Lactic acid is 1.9, calcium is 6.1 with AST of 169, ALT 95, total bilirubin is 2.9, alkaline phosphatase is 180. Troponin I is 217, albumin is 1.6. Lipase is pending. Viral hepatitis serology is pending. UA is negative for urinary tract infection. IMAGING: CT of abdomen and pelvis was obtained. This is significant for chronic calcified pancreatitis with pancreatic atrophy. The patient also appears to have pancolitis and trace fluid in the pelvic region. ASSESSMENT AND PLAN: We will consider abdominal ultrasound to further evaluate her abnormal liver enzymes. We will continue monitoring her LFTs. Her potassium needs to be aggressively treated as it is only 1.3. She also has sepsis for which she is hypotensive. She is on antibiotics, Zosyn. We will continue monitoring the patient and make further recommendations. Note that 45 minutes was spent for this consult. <ELECTRONICALLY SIGNED> By: Matilde Ponce MD 07/28/21 1605 1237 [id number] Ponce MD /nt
[2021-07-28 18:49] LABS: HEMATOCRIT 29.4 % (37.0-47.0); HEMOGLOBIN 9.9 gm/dL (12.0-15.0); MCH 32.9 pg (26.0-34.0); MCHC 33.6 g/dL (28.0-37.0); MPV 9.3 fl. (7.2-11.1); RDW-CV 16.2 % (10.5-14.5); WBC 14.6 thou/uL (4.0-11.0)
[2021-07-28 19:00] LABS: CALCIUM 6.7 mg/dL (8.5-10.1); CREATININE 1.2 mg/dL (0.6-1.3)
[2021-07-28 19:02] LABS: POTASSIUM 4.1 mmol/L (3.5-5.1)
[2021-07-28 20:28] LABS: CALCIUM 6.7 mg/dL (8.5-10.1); CREATININE 1.2 mg/dL (0.6-1.3); POTASSIUM 3.6 mmol/L (3.5-5.1)
[2021-07-29] VITALS (60 sets, daily range): BP systolic 72–113; BP diastolic 45–70
[2021-07-29 05:28] LABS: ABSOLUTE LYMPHOCYTES 1.6 thou/uL (0.8-5.3); ABSOLUTE MONOCYTES 0.6 thou/uL (0.0-1.2); ABSOLUTE NEUTROPHILS 11.6 thou/uL (1.6-8.1); BASOPHILS 0.4 %; EOSINOPHILS 0.2 %; HEMATOCRIT 27.5 % (37.0-47.0); HEMOGLOBIN 9.2 gm/dL (12.0-15.0); LYMPHOCYTES 11.7 %; MCH 32.9 pg (26.0-34.0); MCHC 33.3 g/dL (28.0-37.0); MCV 98.7 fL (80.0-100.0); MONOCYTES 4.5 %; MPV 9.6 fl. (7.2-11.1); NUCLEATED RBCS 0 /100WBC; PLATELET COUNT* 138 thou/uL (150-400); POLYS 83.2 %; RBC 2.79 mil/uL (4.20-5.00); RDW-CV 16.6 % (10.5-14.5)
[2021-07-29 05:40] LABS: ALBUMIN 3.2 g/dL (3.4-5.0); CALCIUM 6.7 mg/dL (8.5-10.1); CREATININE 1.2 mg/dL (0.6-1.3); MAGNESIUM 2.8 mg/dL (1.8-2.4); POTASSIUM 3.6 mmol/L (3.5-5.1); TOTAL BILIRUBIN 3.3 mg/dL (<0.1-1.0); TOTAL PROTEIN 5.1 g/dL (6.4-8.2)
--- NOTE | 2021-07-29 09:47 | CON ---
[facility] [address] [place] [address] CONSULTATION Name: DIMITRI WADE Room: [address] IN M.R.#: [id number] Admission: 07/27/21 Attend Phys: Lynnette Pineda Discharge: Date of : 53 Report #: [id number] THIS REPORT FOR: cc: Denys Knight Russell J. DO Arakelov, Alexandr V. MD ~ DATE OF CONSULTATION: 07/27/2021 REQUESTING PHYSICIAN: ____ REASON FOR CONSULTATION: Severe hypokalemia. HISTORY OF PRESENT ILLNESS: The patient is a 65-year-old female who was admitted after having altered mental status for the last 5 days and not eating or drinking much. I do not have a good history on that, but that is what was documented in the chart. The patient was found to be very malnourished, hypotensive. Lactic acid was elevated and her potassium was 1. Her BUN and creatinine are normal. She was giving fluids and started on protocol replacement for the potassium. REVIEW OF SYSTEMS: Unobtainable because she has altered mental status. SOCIAL HISTORY: Unknown. FAMILY HISTORY: Unknown. MEDICATIONS: Prior to admission reviewed and from my standpoint, she was on Lasix. PHYSICAL EXAMINATION: GENERAL: She is in the Intensive Care Unit, unresponsive, getting fluids, hypotensive. NECK: Supple. LUNGS: Decreased air movement. She is very cachectic. ABDOMEN: Soft. EXTREMITIES: Lower extremities, no edema. CARDIOVASCULAR: No pericardial rub. ASSESSMENT: 1. Severe malnutrition. 2. Hypokalemia due to malnutrition. 3. Hypotension. 4. Possible sepsis. PLAN: [address] [address] CONSULTATION Name: DIMITRI WADE MANFRED Room: [address] IN [facility].#: [id number] Admission: 07/27/21 Attend Phys: Lynnette Pineda Discharge: Date of : 53 Report #: [id number] 1. Give her another liter of saline bolus. 2. Continue with D5 half NS. 3. Replace potassium per protocol. 4. Follow her labs. 5. Discussed with the ICU nurse. <ELECTRONICALLY SIGNED> By: Justin Rodriguez MD 07/29/21 0947 0925 [id number] Rodriguez MD /nt
[2021-07-29 12:31] LABS: CALCIUM 6.8 mg/dL (8.5-10.1); CREATININE 1.2 mg/dL (0.6-1.3); MAGNESIUM 2.7 mg/dL (1.8-2.4); POTASSIUM 3.8 mmol/L (3.5-5.1)
[2021-07-29 15:15] LABS: BE -7.4 mmol/L (-2 to +3); PCO2 21.2 mmHg (35.0-45.0); PO2 84.7 mmHg (75.0-100.0); pH 7.458 (7.340-7.450)
--- NOTE | 2021-07-29 16:51 | CON ---
[address] [address] CONSULTATION Name: DIMITRI WADE Room: [address] IN M.R.#: [id number] Admission: 07/27/21 Attend Phys: Lynnette Pineda Discharge: Date of : 53 Report #: [id number] THIS REPORT FOR: cc: Denys Knight Russell J. DO Pervez, Adeel MD ~ DATE OF CONSULTATION: 07/27/2021 Consult has been requested by Dr. Mcgowan. INDICATION FOR CONSULTATION: Acute respiratory failure. HISTORY OF PRESENT ILLNESS: This is a 65-year-old female information regarding past medical history is limited. She is reported to have had colitis and she is an active smoker. She is now admitted with altered mental status. She is reported to have been progressively having increasing weakness and lethargy over the last several days. She is reported to have had diarrhea. Upon arrival, the patient was noted to have severe electrolyte abnormalities including a severely decreased potassium at 1.3. She does have liver enzyme elevation as well and low albumin. The patient was hypotensive during the night and did receive norepinephrine. She is also reported to have a narrow complex tachycardia during the night, likely SVT, currently she is in a sinus rhythm. The patient currently is on 3 of Versed. She appears to be well sedated. The patient was maintaining a MAP of around 65 and was off pressors and I saw her, but I am told that she is now dropping blood pressure and may need blood pressure support again. The patient is on the ventilator and is not able to provide a further history or review of systems. PAST MEDICAL HISTORY: She is reported history of colitis, details are not available, also pancreatitis, lupus, stroke, fibromyalgia, osteoporosis, osteoarthritis, pernicious anemia, chronic insomnia, appendectomy, hernia repair, cholecystectomy, possible pancreatic surgery. SOCIAL HISTORY: She is reported to be an active smoker. CURRENT MEDICATIONS: List in [employer] reviewed. HOME MEDICATIONS: The list in [employer] is reviewed. ALLERGIES: REPORTEDLY ALLERGIC TO AZITHROMYCIN, IV DYE, IODINE AND LATEX, ALSO HAD ALLERGY OR ABNORMAL REACTION TO COMPAZINE AND REGLAN WELL BUTORPHANOL. FAMILY HISTORY: No pertinent family history known [place] [address] CONSULTATION Name: DIMITRI WADE Room: [address] IN [facility]#: [id number] Admission: 07/27/21 Attend Phys: Lynnette Pineda Discharge: Date of : 53 Report #: [id number] PHYSICAL EXAMINATION: GENERAL: She is sedated with Versed. VITAL SIGNS: In the records reviewed. Ventilator settings also reviewed. HEENT: Head is normocephalic and atraumatic. There is an endotracheal tube in good position. NECK: Does not show raised JVP, asymmetry, mass or lymph nodes. CHEST: Symmetrical expansion on inspection and palpation. On auscultation, chest is clear. HEART: Regular. There is no murmur. ABDOMEN: Soft and nontender. EXTREMITIES: Lower extremities show no edema, no calf tenderness. SKIN: Dry and intact. NEUROLOGIC: She did move all extremities to pain. IMAGING AND LABORATORY DATA: The patient's imaging as well as lab work in [facility] reviewed. ASSESSMENT/PLAN: 1. Acute respiratory failure. She is sedated with Versed. There is room to cut down on sedation. I do not want her to wake up at this time and have an arrhythmia with the critical low potassium. Therefore, I continued for now. Once her potassium is replaced, I will consider cutting back sedation. 2. Severe hypokalemia. This is likely secondary to diarrheal illness. The patient in fact is reported to have had loose stools now, I would aggressively replace potassium and we give her 40 more down the tube now and we will give her 80 IV over the next 2 hours and then will recheck. The Nephrology service is also on the case. 3. Hypernatremia/severe malnutrition. She is ventilating and oxygenating adequately. Therefore, if needed to maintain blood pressure and current amount of fluids can be continued. Otherwise, I would favor perhaps cutting back and we can possibly consider switching her over to D5W. We will go ahead and give her some albumin as well, which will help maintain blood pressure. 4. Pancolitis/diarrhea. The patient is reported to be having more loose stools now, I would go ahead and add oral vancomycin as well as IV Flagyl. Pending Clostridium difficile results, which I ordered. She already is on vancomycin and Zosyn. Further input from GI is pending. 5. Chronic obstructive pulmonary disease. While not mentioned in the records. History is consistent with this and medications at home are also. I discontinued nebulized bronchodilators for now due to risk of administration, due to severely decreased potassium level, once potassium is replaced, we will plan on restarting these. 6. Chronic pancreatitis/elevated LFTs. I would add a lipase level to her last available labs and again GI is also on the case. 7. Possible sepsis. No definite infiltrates on chest x-ray. She is on [facility] [address] [place] [address] CONSULTATION Name: DIMITRI WADE Room: [facility] IN [facility]#: [id number] Admission: 07/27/21 Attend Phys: Lynnette Pineda Discharge: Date of : 53 Report #: [id number] broad-spectrum antibiotics as discussed, pending further evaluation. 8. Deep venous thrombosis prophylaxis, Lovenox. 9. Gastrointestinal prophylaxis, Protonix. 10. Hyperglycemia, insulin sliding scale. 11. Evaluation for thromboembolism/elevated troponin I. SHE HAS A HISTORY OF CONTRAST ALLERGY. I would for now, hold off on a CTA chest or perfusion scan. We will start by obtaining a 2D echo as well as venous Dopplers. Case was also discussed with Dr. Hein. The patient is critically ill at this time. Total time spent providing critical care to this patient today exceeds 43 minutes. <ELECTRONICALLY SIGNED> By: Isiah Armstrong MD 07/29/21 1651 1209 [id number] Armstrong MD /nt
[2021-07-29 19:09] LABS: CALCIUM 7.3 mg/dL (8.5-10.1); CREATININE 1.2 mg/dL (0.6-1.3); MAGNESIUM 2.3 mg/dL (1.8-2.4); POTASSIUM 3.3 mmol/L (3.5-5.1)
[2021-07-30] VITALS (44 sets, daily range): BP systolic 91–129; BP diastolic 50–79
[2021-07-30 04:25] LABS: HEMATOCRIT 29.3 % (37.0-47.0); HEMOGLOBIN 9.9 gm/dL (12.0-15.0); MCH 33.5 pg (26.0-34.0); MCHC 33.8 g/dL (28.0-37.0); MCV 99.2 fL (80.0-100.0); MPV 9.8 fl. (7.2-11.1); RBC 2.95 mil/uL (4.20-5.00); RDW-CV 16.5 % (10.5-14.5)
[2021-07-30 04:55] LABS: ALBUMIN 2.6 g/dL (3.4-5.0); CALCIUM 7.3 mg/dL (8.5-10.1); CREATININE 1.1 mg/dL (0.6-1.3); MAGNESIUM 2.1 mg/dL (1.8-2.4); POTASSIUM 3.3 mmol/L (3.5-5.1); TOTAL PROTEIN 4.5 g/dL (6.4-8.2)
[2021-07-30 11:46] LABS: CALCIUM 7.4 mg/dL (8.5-10.1); MAGNESIUM 1.9 mg/dL (1.8-2.4); POTASSIUM 3.8 mmol/L (3.5-5.1)
[2021-07-30 16:41] LABS: BE -6.5 mmol/L (-2 to +3); PCO2 VENOUS 30.4 mmHg (41.0-51.0); PO2 VENOUS 64.1 mmHg (35.0-45.0)
[2021-07-31] VITALS (32 sets, daily range): BP systolic 99–132; BP diastolic 47–77
[2021-07-31 05:58] LABS: HEMATOCRIT 33.4 % (37.0-47.0); HEMOGLOBIN 11.1 gm/dL (12.0-15.0); MCH 32.7 pg (26.0-34.0); MCHC 33.1 g/dL (28.0-37.0); MCV 98.7 fL (80.0-100.0); MPV 10.1 fl. (7.2-11.1); NUCLEATED RBCS 0 /100WBC; PLATELET COUNT* 100 thou/uL (150-400); RBC 3.39 mil/uL (4.20-5.00); RDW-CV 16.7 % (10.5-14.5); WBC 11.9 thou/uL (4.0-11.0)
[2021-07-31 06:09] LABS: PHOSPHORUS* 2.2 mg/dL (2.5-4.9)
[2021-07-31 06:16] LABS: ALBUMIN 2.2 g/dL (3.4-5.0); CALCIUM 7.5 mg/dL (8.5-10.1); CREATININE 0.9 mg/dL (0.6-1.3); MAGNESIUM 1.9 mg/dL (1.8-2.4); POTASSIUM 3.2 mmol/L (3.5-5.1); TOTAL BILIRUBIN 4.4 mg/dL (<0.1-1.0); TOTAL PROTEIN 4.3 g/dL (6.4-8.2)
[2021-07-31 08:10] LABS: ABSOLUTE LYMPHOCYTES 1.2 thou/uL (0.8-5.3); ABSOLUTE MONOCYTES 0.4 thou/uL (0.0-1.2); ABSOLUTE NEUTROPHILS 10.4 thou/uL (1.6-8.1); PLATELET ESTIMATE ADEQUATE
[2021-08-01] VITALS (7 sets, daily range): BP systolic 115–147; BP diastolic 64–91
[2021-08-01 06:10] LABS: ABSOLUTE BASOPHILS 0.1 thou/uL (0.0-0.2); ABSOLUTE LYMPHOCYTES 1.4 thou/uL (0.8-5.3); ABSOLUTE MONOCYTES 0.5 thou/uL (0.0-1.2); ABSOLUTE NEUTROPHILS 9.5 thou/uL (1.6-8.1); BASOPHILS 0.4 %; HEMATOCRIT 33.9 % (37.0-47.0); HEMOGLOBIN 11.1 gm/dL (12.0-15.0); LYMPHOCYTES 12.4 %; MCH 32.8 pg (26.0-34.0); MCHC 32.9 g/dL (28.0-37.0); MCV 99.6 fL (80.0-100.0); MONOCYTES 4.6 %; MPV 10.5 fl. (7.2-11.1); NUCLEATED RBCS 0 /100WBC; PLATELET COUNT* 82 thou/uL (150-400); POLYS 82.6 %; RDW-CV 16.5 % (10.5-14.5); WBC 11.6 thou/uL (4.0-11.0)
[2021-08-01 06:57] LABS: PREALBUMIN 6.2 mg/dL (18.0-35.7)
[2021-08-01 06:59] LABS: CALCIUM 7.6 mg/dL (8.5-10.1); CREATININE 0.8 mg/dL (0.6-1.3); POTASSIUM 3.1 mmol/L (3.5-5.1); TOTAL BILIRUBIN 3.7 mg/dL (<0.1-1.0); TOTAL PROTEIN 4.3 g/dL (6.4-8.2)
[2021-08-01 17:11] LABS: CALCIUM 7.6 mg/dL (8.5-10.1); CREATININE 0.8 mg/dL (0.6-1.3); MAGNESIUM 1.8 mg/dL (1.8-2.4)
[2021-08-01 17:17] LABS: POTASSIUM 4.3 mmol/L (3.5-5.1)
[2021-08-01 19:18] LABS: INFLUENZA A ANTIGEN Negative (Negative); INFLUENZA B ANTIGEN Negative (Negative)
[2021-08-02] VITALS (7 sets, daily range): BP systolic 103–170; BP diastolic 61–73
[2021-08-02 04:31] LABS: ABSOLUTE LYMPHOCYTES 1.9 thou/uL (0.8-5.3); ABSOLUTE MONOCYTES 0.5 thou/uL (0.0-1.2); ABSOLUTE NEUTROPHILS 7.7 thou/uL (1.6-8.1); BASOPHILS 0.4 %; EOSINOPHILS 0.4 %; HEMATOCRIT 29.4 % (37.0-47.0); HEMOGLOBIN 10.1 gm/dL (12.0-15.0); LYMPHOCYTES 18.2 %; MCH 33.9 pg (26.0-34.0); MCHC 34.3 g/dL (28.0-37.0); MCV 98.8 fL (80.0-100.0); MONOCYTES 4.8 %; MPV 10.2 fl. (7.2-11.1); NUCLEATED RBCS 0 /100WBC; PLATELET COUNT* 79 thou/uL (150-400); POLYS 76.2 %; RBC 2.97 mil/uL (4.20-5.00); RDW-CV 16.4 % (10.5-14.5); WBC 10.2 thou/uL (4.0-11.0)
[2021-08-02 04:32] LABS: INR 1.4
[2021-08-02 04:42] LABS: ALBUMIN 2.5 g/dL (3.4-5.0); CALCIUM 7.5 mg/dL (8.5-10.1); CREATININE 0.8 mg/dL (0.6-1.3); POTASSIUM 3.2 mmol/L (3.5-5.1); TOTAL BILIRUBIN 3.7 mg/dL (<0.1-1.0); TOTAL PROTEIN 4.7 g/dL (6.4-8.2)
--- NOTE | 2021-08-02 14:32 | EKG ---
[place] [address] ELECTROCARDIOGRAM REPORT Name: WADEDIMITRI MANFRED Room: [address] ADM IN .R.#: [id number] Admission: 07/27/21 Attend Phys: Shan Chacon Discharge: Date of : 53 Date of Service: 08/01/21 1040 Report #: [id number] THIS REPORT FOR: //name// [facility] Test Date: 2021-08-01 Test Time: 10:40:24 Pat Name: DIMITRI WADE Department: Room: [address] Gender: F Belt Picker: AF : 1955 Requested By: Edgar Hall Order Number: [id number] Reading MD: Niranjan Servin Measurements Intervals [place] Rate: 82 P: 65 GA: 117 QRS: 30 QRSD: 76 T: 43 QT: 437 QTc: 511 Interpretive Statements Sinus rhythm Borderline short GA interval Low voltage, extremity leads Nonspecific T abnormalities, anterior leads Prolonged QT interval Compared to ECG 07/27/2021 01:21:09 Supraventricular tachycardia no longer present Electronically Signed On 08-02-2021 14:32:43 GUN NUMBERER by Niranjan Servin [email or web address] <ELECTRONICALLY SIGNED> By: Niranjan Servin MD, [facility] 08/02/21 1432 1040 1040 Niranjan Servin MD, [facility] /EPI
--- NOTE | 2021-08-02 15:07 | PATH ---
[address] [address] PATHOLOGY RPT PROCEDURE Name: EL[place] WADE Room: [address] IN .R.#: [id number] Admission: 07/27/21 Date of : 53 Discharge: Report #: [id number] Path Case #: [id number] [facility] Accession Number: [id number] . 01 Material submitted: . PART A: colon - MID-ASCENDING COLON POLYP X3 HOT. Modifiers: mid, ascending PART B: colon - PROXIMAL TRANSVERSE POLYP X2 COLD. Modifiers: proximal, transverse PART C: colon - MID TRANSVERSE POLYP X6 HOT. Modifiers: mid PART D: colon - MID DISTAL TRANSVERSE POLPY X1 HOT. Modifiers: mid, distal PART E: colon - DESCENDING COLON POLYP X1 HOT. Modifiers: descending PART F: sigmoid colon - SIGMOID POLYP X1 HOT . 01 Clinical history: . EGD AND COLONOSCOPY PANCOLITIS, AMS, HYPOKALEMIA, MYPOMAG . 02 Diagnosis: A. Mid ascending colon polyp x 3 (hot): - One hyperplastic polyp and two tubular adenomas, negative for high-grade dysplasia. . B. Proximal transverse polyp x 2 (cold): - Two tubular adenomas, negative for high-grade dysplasia. . C. Mid transverse polyp x 6 (hot): - Multiple tubular adenomas, negative for high-grade dysplasia. . D. Mid distal transverse polyp x 1 (hot): - Tubular adenoma, negative for high-grade dysplasia. . E. Descending colon polyp x 1 (hot): - Tubular adenoma, negative for high-grade dysplasia. . F. Sigmoid polyp x 1 (hot): - Tubular adenoma, negative for high-grade dysplasia. (JESS:[facility] 08/02/2021) [facility] 08/02/2021 1227 Local . 02 Electronically signed: . Zhao Muniz MD, Pathologist NPI- [id number] . 01 Gross description: . A. The specimen is received in formalin, labeled "[place] Wade, mid ascending colon polyp x3". Received are two segments of pale deutsch tissue measuring 0.4 and 0.5 cm in maximum dimensions. The specimen is submitted entirely in cassette A1. Upon careful inspection and filtration, [place] [address] PATHOLOGY RPT PROCEDURE Name: ELIZABETH WADE Room: [address] IN ..#: [id number] Admission: 07/27/21 Date of : 53 Discharge: Report #: [id number] Path Case #: [id number] additional tissue is found remaining within the container. . B. The specimen is received in formalin, labeled "[place] Wade, proximal transverse polyp x2". Received are two segments of pale deutsch tissue measuring 0.1 and 0.4 cm in maximum dimensions. The specimen is submitted entirely in cassette C1. . C. The specimen is received in formalin, labeled "[place] Wade, mid transverse polyp x6". Received are multiple segments of light deutsch tissue ranging in size from 0.3-0.7 cm in maximum dimensions. The specimen is submitted entirely in cassette C1. . D. The specimen is received in formalin, labeled "[place] Wade, mid distal transverse polyp x1". Received is a segment of pale deutsch tissue measuring 0.5 cm in maximum dimensions. The specimen is submitted entirely in cassette D1. . E. The specimen is received in formalin, labeled "[place] Wade, descending colon polyp x1". Received are two segments of pale deutsch tissue measuring 0.3 cm each in maximum dimensions. The specimen is submitted entirely in cassette E1. . F. The specimen is received in formalin, labeled "[place] Wade, sigmoid polyp x1". Received is a segment of light brown tissue measuring 0.8 cm in maximum dimensions. The surgical margin is inked and the segment is bisected. The specimen is submitted entirely in cassette F1. ([facility]; 08/01/2021) QA/QA 08/01/2021 [facility] Local . 02 Pathologist provided ICD-10: K63.5, D12.2, D12.3, D12.4, D12.5 . 02 CPT . 048577, 512429, 014599, 191435, 923214, 882677 Specimen Comment: Report sent to , DR MONTILLA / DR MORGAN Performed at: [address], [place] [id number] MD Benny Bueno MD Phone: [phone] Performed at: 02 [facility] [address], [place], [place] [id number] MD Zhao Muniz MD Phone: [phone]
[2021-08-02 18:02] LABS: CALCIUM 7.6 mg/dL (8.5-10.1); CREATININE 0.7 mg/dL (0.6-1.3); MAGNESIUM 1.8 mg/dL (1.8-2.4); PHOSPHORUS* 1.7 mg/dL (2.5-4.9); POTASSIUM 3.8 mmol/L (3.5-5.1)
[2021-08-06 11:21] LABS: MYCOPLASMA PNEUMONIA IgG 175 U/mL (0-99); MYCOPLASMA PNEUMONIA IgM <770 U/mL (0-769)
== END 2021-08-03 | DRG 871 ==
LOC: M.ERS 00:47 → M.TBA-ER 06:15 → M.ICU 06:15 → M.2W 07-31 23:15
PROVIDERS: Emergency Medicine; Internal Medicine; Internal Medicine Critical Care Medicine; Internal Medicine Gastroenterology; ADMIT Internal Medicine; ATTEND Internal Medicine
PROC: 0BH17EZ Insertion of Endotracheal Airway into Trachea, Via Natural or Artificial Opening (ICD-10-PCS; principal; 2021-07-27)
PROC: 5A1945Z Respiratory Ventilation, 24-96 Consecutive Hours (ICD-10-PCS; principal; 2021-07-27)
PROC: 02HV33Z Insertion of Infusion Device into Superior Vena Cava, Percutaneous Approach (ICD-10-PCS; principal; 2021-07-27)
PROC: B548ZZA Ultrasonography of Superior Vena Cava, Guidance (ICD-10-PCS; principal; 2021-07-27)
PROC: 0DBM8ZZ Excision of Descending Colon, Via Natural or Artificial Opening Endoscopic (ICD-10-PCS; 2021-07-30)
PROC: 0DJ08ZZ Inspection of Upper Intestinal Tract, Via Natural or Artificial Opening Endoscopic (ICD-10-PCS; 2021-07-30)
PROC: 0DBL8ZZ Excision of Transverse Colon, Via Natural or Artificial Opening Endoscopic (ICD-10-PCS; 2021-07-30)
PROC: 0DBK8ZZ Excision of Ascending Colon, Via Natural or Artificial Opening Endoscopic (ICD-10-PCS; 2021-07-30)
PROC: 0DBN8ZZ Excision of Sigmoid Colon, Via Natural or Artificial Opening Endoscopic (ICD-10-PCS; 2021-07-30)
DX: A41.9 Sepsis, unspecified organism (principal); J96.01 Acute respiratory failure with hypoxia; G93.41 Metabolic encephalopathy; E43 Unspecified severe protein-calorie malnutrition; R65.21 Severe sepsis with septic shock; I85.00 Esophageal varices without bleeding; K76.6 Portal hypertension; I47.1 Supraventricular tachycardia; K51.00 Ulcerative (chronic) pancolitis without complications; E87.0 Hyperosmolality and hypernatremia; K86.1 Other chronic pancreatitis; K64.4 Residual hemorrhoidal skin tags; K31.89 Other diseases of stomach and duodenum; K63.5 Polyp of colon; M81.0 Age-related osteoporosis without current pathological fracture; M19.90 Unspecified osteoarthritis, unspecified site; K57.30 Diverticulosis of large intestine without perforation or abscess without bleeding; F51.04 Psychophysiologic insomnia; R40.2432 Glasgow coma scale score 3-8, at arrival to emergency department; E87.6 Hypokalemia; I95.9 Hypotension, unspecified; E83.51 Hypocalcemia; E83.42 Hypomagnesemia; J44.9 Chronic obstructive pulmonary disease, unspecified; R73.9 Hyperglycemia, unspecified; F17.210 Nicotine dependence, cigarettes, uncomplicated; F10.20 Alcohol dependence, uncomplicated; Z86.73 Personal history of transient ischemic attack (TIA), and cerebral infarction without residual deficits; D69.6 Thrombocytopenia, unspecified; Z20.822 Contact with and (suspected) exposure to COVID-19; Z90.49 Acquired absence of other specified parts of digestive tract; Z88.8 Allergy status to other drugs, medicaments and biological substances; Z88.1 Allergy status to other antibiotic agents; Z91.041 Radiographic dye allergy status; Z91.040 Latex allergy status; K70.30 Alcoholic cirrhosis of liver without ascites; Z68.20 Body mass index [BMI] 20.0-20.9, adult